=== PATIENT | female | born 2000 | race Caucasian/White ===

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

== ENCOUNTER → 2018-04-09 18:31 | Outpatient (CLI) | payer MEDICAID ==
[2016-05-08 08:50] VITALS: BMI 31.8
== END | disposition home or self-care (01) ==
LOC: D.LDO 18:31
DX: O26.892 Other specified pregnancy related conditions, second trimester (principal); Z3A.24 24 weeks gestation of pregnancy

== ENCOUNTER → 2018-06-06 16:22 | Outpatient (CLI) | payer MEDICAID ==
[2016-05-08 08:50] VITALS: BMI 31.8
[2018-06-06 17:28] LABS: APPEARANCE HAZY (CLEAR); BILIRUBIN NEGATIVE (NEGATIVE); COLOR STRAW (YELLOW); GLUCOSE NEGATIVE (NEGATIVE); KETONE NEGATIVE (NEGATIVE); NITRITE NEGATIVE (NEGATIVE); PROTEIN NEGATIVE (NEGATIVE); UROBILINOGEN NORMAL (NORMAL)
[2018-06-06 17:29] LABS: BACTERIA MANY /hpf (NONE SEEN); EPITHELIAL CELLS 25-50 /hpf (0-5); RED CELLS - URINE 0-5 /hpf (0-5); WHITE CELLS - URINE 25-50 /hpf (0-5)
== END | disposition home or self-care (01) ==
LOC: D.LDO 16:22
PROVIDERS: Obstetrics & Gynecology
DX: O26.893 Other specified pregnancy related conditions, third trimester (principal); Z3A.33 33 weeks gestation of pregnancy; R10.30 Lower abdominal pain, unspecified

== ENCOUNTER 2018-06-30 18:24 | Outpatient (CLI) | payer MEDICAID ==
[2016-05-08 08:50] VITALS: BMI 31.8
[2018-06-30 19:29] LABS: APPEARANCE CLEAR (CLEAR); BILIRUBIN NEGATIVE (NEGATIVE); COLOR YELLOW (YELLOW); GLUCOSE NEGATIVE (NEGATIVE); KETONE NEGATIVE (NEGATIVE); NITRITE NEGATIVE (NEGATIVE); PROTEIN NEGATIVE (NEGATIVE); UROBILINOGEN NORMAL (NORMAL)
== END 2018-06-30 20:50 ==
LOC: D.LDO 18:24
PROVIDERS: Obstetrics & Gynecology
DX: O26.893 Other specified pregnancy related conditions, third trimester (principal); Z3A.36 36 weeks gestation of pregnancy

== ENCOUNTER 2018-07-07 19:25 | Outpatient (CLI) | payer MEDICAID ==
[2016-05-08 08:50] VITALS: BMI 31.8
== END 2018-07-07 20:00 ==
LOC: D.LDO 19:25
DX: O26.893 Other specified pregnancy related conditions, third trimester (principal); Z3A.37 37 weeks gestation of pregnancy; R10.9 Unspecified abdominal pain

== ENCOUNTER 2018-11-20 14:54 | Emergency (ER) | payer MEDICAID ==
[~2018-11-20] VITALS: Ht 160 cm; Wt 55.4 kg
[2018-11-20 15:15] VITALS: Ht 160 cm; Wt 55.4 kg
[2018-11-20 16:37] LABS: APPEARANCE CLEAR (CLEAR); BILIRUBIN NEGATIVE (NEGATIVE); COLOR YELLOW (YELLOW); GLUCOSE NEGATIVE (NEGATIVE); KETONE NEGATIVE (NEGATIVE); NITRITE NEGATIVE (NEGATIVE); PROTEIN TRACE mg/dL (NEGATIVE); UROBILINOGEN NORMAL (NORMAL)
[2018-11-20 16:38] LABS: BACTERIA FEW /hpf (NONE SEEN); EPITHELIAL CELLS OCC /hpf (0-5); RED CELLS - URINE OCC /hpf (0-5); WHITE CELLS - URINE 0-5 /hpf (0-5)
[2018-11-20 19:56] VITALS: BP 119/67
== END 2018-11-20 19:56 | disposition home or self-care (01) ==
LOC: D.ER 14:54
PROVIDERS: Emergency Medicine
DX: O20.9 Hemorrhage in early pregnancy, unspecified (principal); Z3A.01 Less than 8 weeks gestation of pregnancy; O20.8 Other hemorrhage in early pregnancy; O20.0 Threatened abortion

== ENCOUNTER 2019-06-07 17:59 | Outpatient (CLI) | payer MEDICAID ==
[2018-11-20 15:15] VITALS: BMI 31.8
[2019-06-07 19:05] LABS: APPEARANCE CLEAR (CLEAR); BILIRUBIN NEGATIVE (NEGATIVE); COLOR YELLOW (YELLOW); GLUCOSE NEGATIVE (NEGATIVE); KETONE NEGATIVE (NEGATIVE); NITRITE NEGATIVE (NEGATIVE); PROTEIN NEGATIVE (NEGATIVE); UROBILINOGEN NORMAL (NORMAL)
== END 2019-06-07 19:50 | disposition home or self-care (01) ==
LOC: D.LDO 17:59
PROVIDERS: ATTEND Obstetrics & Gynecology
DX: O26.899 Other specified pregnancy related conditions, unspecified trimester (principal); R10.9 Unspecified abdominal pain; Z3A.34 34 weeks gestation of pregnancy

== ENCOUNTER 2019-07-14 20:11 | Inpatient (IN) | payer MEDICAID ==
[~2019-07-14] VITALS: Ht 160 cm; Wt 68.2 kg
[2019-07-14 21:40] LABS: HEMATOCRIT 28.2 % (36.0-48.0); HEMOGLOBIN 9.8 g/dL (12-16); MCH 33.9 pg (26.0-34.0); MCHC 34.8 g/dL (31.0-37.0); MCV 97.6 fL (80.0-100.0); MEAN PLATELET VOLUME 8.7 fL (7.4-10.4); RBC 2.89 10x6/uL (4.00-5.40); RDW 14.5 % (11.5-14.5); WBC 8.5 10x3/uL (4.8-10.8)
[2019-07-14 21:50] LABS: APPEARANCE CLEAR (CLEAR); BILIRUBIN NEGATIVE (NEGATIVE); COLOR YELLOW (YELLOW); GLUCOSE NEGATIVE (NEGATIVE); KETONE NEGATIVE (NEGATIVE); NITRITE NEGATIVE (NEGATIVE); PROTEIN NEGATIVE (NEGATIVE); SPECIFIC GRAVITY 1.015 (1.005-1.020); UROBILINOGEN NORMAL (NORMAL)
[2019-07-14 21:52] VITALS: BP 119/65; Ht 160 cm; Wt 68.2 kg
[2019-07-14 21:52] LABS: BACTERIA FEW /hpf (NEGATIVE); EPITHELIAL CELLS OCC /hpf (0-5); WHITE CELLS - URINE 0-5 /hpf (NEGATIVE)
[2019-07-15 12:51] LABS: UDS - AMPHET NEGATIVE QUAL (NEGATIVE); UDS - BARB NEGATIVE QUAL (NEGATIVE); UDS - BENZO NEGATIVE QUAL (NEGATIVE); UDS - COCAINE NEGATIVE QUAL (NEGATIVE); UDS - OPIATE NEGATIVE QUAL (NEGATIVE); UDS - PCP NEGATIVE QUAL (NEGATIVE); UDS - THC NEGATIVE QUAL (NEGATIVE)
--- NOTE | 2019-07-15 19:00 | NUR ---
PM ROUNDS MADE, RECEIVED SHIFT REPORT FROM MELISSA QUINTANA RN, INFORMED PT THAT I WILL BE BACK SHORTLY TO DO ASSESSMENT, PT VERBALIZES UNDERSTANDING, FAMILY IN ROOM AT THIS TIME
[2019-07-15 20:09] VITALS: BP 124/77
--- NOTE | 2019-07-15 20:09 | NUR ---
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
--- NOTE | 2019-07-15 21:30 | NUR ---
PT VISITING WITH FAMILY AND FRIENDS, DENIES NEEDS AT THIS TIME
--- NOTE | 2019-07-15 22:46 | NUR ---
PT SITTING UP IN BED SMILING AND VISITING WITH FAMILY AND FRIENDS, ADM COUGH SYRUP PER MD ORDERS, SEE EMAR, PT DENIES FURTHER NEEDS
--- NOTE | 2019-07-16 00:38 | NUR ---
PT WATCHING TV, DENIES NEEDS AT THIS TIME, FOB IN ROOM, PILLOW PROVIDED
--- NOTE | 2019-07-16 02:21 | NUR ---
PT RESTING WITH EYES CLOSED, AROUSES TO SOFT VERBAL STIMULATION, ADM TYLENOL PER MD ORDERS, SEE EMAR, WITH FRESH H20, PT DENIES FURTHER NEEDS, FOB ASLEEP IN BED WITH PT, FAMILY MEMBER ASLEEP ON COUCH
--- NOTE | 2019-07-16 04:29 | NUR ---
PT AWAKE, HOLDING INFANT, RATES PAIN 4/10, DENIES NEEDS AT THIS TIME, FOB ASLEEP IN BED WITH PT, FAMILY MEMBER ASLEEP ON COUCH
--- NOTE | 2019-07-16 06:22 | NUR ---
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
[2019-07-16 06:51] LABS: BASOPHILS 0.1 % (0-2); EOSINOPHILS 0.6 % (0-7); HEMATOCRIT 27.4 % (36.0-48.0); IMMATURE GRANULOCYTES 0.2 % (0-5); LYMPHOCYTES 23.5 % (15-50); MCH 32.7 pg (26.0-34.0); MCHC 32.8 g/dL (31.0-37.0); MEAN PLATELET VOLUME 9.2 fL (7.4-10.4); MONOCYTES 6.2 % (2-11); NEUTROPHILS 69.4 % (40-80); RBC 2.75 10x6/uL (4.00-5.40); RDW 14.5 % (11.5-14.5); WBC 10.3 10x3/uL (4.8-10.8)
[2019-07-16 06:59] LABS: MCV 99.6 fL (80.0-100.0); PLATELET COUNT 103 10x3/uL (130-400)
[2019-07-16 08:11] LABS: RAPID PLASMA REAGIN Non Reactive (Non Reactive)
--- NOTE | 2019-07-16 08:45 | NUR ---
ASSESSMENT COMPLETED AND CHARTED ON FLOWSHEET. PT C/O STOMACH PAIN AND AGREES IT IS SIMILAR TO MENSTRUAL CRAMPS, ATTEMPT TO REASSURE HER THIS WAS NORMAL AND USUALLY GETS MORE INTENSE AFTER EACH DELIVERY. SHE DOES SAY THAT SHE SPOKE WITH DR MARTIN THIS AM ABOUT THIS PAIN. ABD SOFT TO TOUCH, FUNDUS FIRM AT U/U WITH LIGHT BLEEDING NOTED TO MELVA PAD. SALINE LOCK TO RIGHT HAND PATENT AND FLUSHES EASILY WITH 5ML NS, PT COMPLAINS OF TENDERNESS AT SITE AND THAT SHE HAS BEEN "BUMPING" IT UP AGAINST EVERYTHING. SALINE LOCK REMOVED WITH CATH INTACT, PT UNDERSTANDS THAT THERE IS A POSIBILITY IV MAY HAVE TO BE RESTARTED. RATING PAIN AT 8/10 BUT IS TALKING WITH FRIENDS AT BEDSIDE, TEXTING ON HER PHONE AND QUESTIONS IF SHE CAN GO OUTSIDE NOW, EXPLAINED THAT SHE COULD WALK AROUND THIS UNIT BUT NO SMOKING WAS ALLOWED ON HOSPITAL GROUNDS, SHE DOES ACCEPT NICOTINE PATCH. SHE HAS ALSO REFUSED THE TYLENOL BECAUSE SHE FEELS IT DOES NOTHING FOR PAIN RELIEF. TOWELS, SOAP, ADDITIONAL MELVA PADS AND MESH BREIFS PLACED IN BATHROOM, REASSURED PT THAT SHE WAS ABLE TO SHOWER WHENEVER SHE IS READY BUT IF SOMEONE WAS ABLE TO REMAIN IN THE ROOM WHILE SHE DOES THAT WOULD BE HELPFUL, ALSO EXPLAINED THE EMERGENCY CALLLIGHT WAS LOCATED. DENIES ANY OTHER NEEDS AT THIS TIME.
--- NOTE | 2019-07-16 11:45 | NUR ---
CALLED IN TO PT ROOM, SHE VOICES CONCERNS ABOUT PHONE CALL SHE HAS RECEIVED FROM HER EX-BOYFRIEND. PT FRIEND WHO IS AT BEDSIDE STATES "HE WILL COME HERE AND THREATEN HER" PT APPEARS UPSET FROM THIS, OFFER MADE TO CHANGE ROOMS AND NOTIFY ADMISSIONS THAT SHE IS NOW CONF. PT IS AGREEABLE TO THIS. AMB TO ROOM 1221.
--- NOTE | 2019-07-16 13:15 | NUR ---
PT CONTINUE TO DENY WANTING TO TAKE TYLENOL OR MOTRIN FOR PAIN STATES SHE FEELS BETTER AFTER SHOWERING AND WALKING AROUND.
--- NOTE | 2019-07-16 13:37 | NUR ---
REPORT GIVEN TO Jovanna MEDINA RN THAT DR. MARTIN HAS CALLED AND GIVEN TELEPHONE ORDER MAY CALL IN IBUPROFEN 800 MG ONE PO EVERY 8 HOURS PRN PAIN, #30. Jovanna MEDINA RN STATES PT SAID SHE DOES NOT TAKE IBUPROFEN.
--- NOTE | 2019-07-16 14:00 | NUR ---
VERBAL AND WRITTEN DISCHARGE INSTRUCTIONS GONE OVER. SHE STATES UNDERSTANDING OF PAIN CONTROL, AND S/S OF INFECTION. DENIES ANY QUESTIONS OR CONCERNS AT THIS TIME. NURSERY NOTIFIED THAT PT HAD BEEN DISCHARGED AND FREE TO GO WHEN THEY HAD FINISHED DISCHARGE.
== END 2019-07-16 14:00 | disposition home or self-care (01) | DRG 807 ==
LOC: D.LD 20:11 → D.SDCHOLD 07-15 10:54 → D.LD 07-15 10:59
PROVIDERS: ADMIT Obstetrics & Gynecology; ATTEND Obstetrics & Gynecology
PROC: 10E0XZZ Delivery of Products of Conception, External Approach (ICD-10-PCS; principal; 2019-07-15)
PROC: 3E033VJ Introduction of Other Hormone into Peripheral Vein, Percutaneous Approach (ICD-10-PCS; 2019-07-15)
PROC: 10907ZC Drainage of Amniotic Fluid, Therapeutic from Products of Conception, Via Natural or Artificial Opening (ICD-10-PCS; 2019-07-15)
DX: O99.334 Smoking (tobacco) complicating childbirth (principal); Z37.0 Single live birth; F17.200 Nicotine dependence, unspecified, uncomplicated; Z3A.39 39 weeks gestation of pregnancy

== ENCOUNTER 2020-05-17 11:44 | Outpatient (CLI) | payer MEDICAID ==
[2019-07-14 21:52] VITALS: BMI 26.6
== END 2020-05-17 12:18 | disposition home or self-care (01) ==
LOC: D.LDO 11:44
PROVIDERS: ATTEND Obstetrics & Gynecology
DX: O47.1 False labor at or after 37 completed weeks of gestation (principal); Z3A.30 30 weeks gestation of pregnancy

== ENCOUNTER 2020-05-21 16:35 | Outpatient (CLI) | payer MEDICAID ==
[2019-07-14 21:52] VITALS: BMI 26.6
[2020-05-21 17:05] LABS: BILIRUBIN NEGATIVE (NEGATIVE); KETONE NEGATIVE (NEGATIVE); NITRITE NEGATIVE (NEGATIVE); UROBILINOGEN NORMAL mg/dL (< 2)
== END 2020-05-21 19:03 | disposition home or self-care (01) ==
LOC: D.LDO 16:35
PROVIDERS: ATTEND Obstetrics & Gynecology
DX: O26.899 Other specified pregnancy related conditions, unspecified trimester (principal); Z3A.00 Weeks of gestation of pregnancy not specified

== ENCOUNTER 2020-05-24 02:55 | Outpatient (CLI) | payer MEDICAID ==
[2019-07-14 21:52] VITALS: BMI 26.6
[2020-05-24 07:47] LABS: BILIRUBIN NEGATIVE (NEGATIVE); KETONE NEGATIVE (NEGATIVE); NITRITE NEGATIVE (NEGATIVE); UROBILINOGEN NORMAL mg/dL (< 2)
[2020-05-24 07:48] LABS: BACTERIA FEW HPF (NONE SEEN); EPITHELIAL CELLS OCC /hpf (0-5); WHITE CELLS - URINE RARE HPF (0-4)
== END 2020-05-24 03:55 | disposition home or self-care (01) ==
LOC: D.LD 02:55 → D.LDO 02:55 → D.LD 02:56 → D.LDO 03:55
PROVIDERS: ATTEND Obstetrics & Gynecology
DX: O26.853 Spotting complicating pregnancy, third trimester (principal)